=== PATIENT | female | born 1970 | race Caucasian/White ===

== ENCOUNTER 2024-10-24 11:32 | Day surgery (SDC) | payer BC ==
[~2024-10-24] VITALS: Ht 157.5 cm; Wt 66.5 kg
[~2024-10-24 11:32] MED LIST: AMPH1CAP5 PO; BUSP5TA PO; LEVO25TA5 PO; LEXA1TAB PO
[2024-10-24] MEDS ORDERED: LIDOCAINE 2% INJ 100 MG/5 ML SYRINGE As Ordered ONE (13:13)
[2024-10-24] MEDS ORDERED: propofoL 200 MG/20 ML VIAL As Ordered ONE (13:13)
[2024-10-24 13:42] VITALS: TEMP 98.4
[2024-10-24 13:52] VITALS: BP 108/71; O2SAT 99
== END 2024-10-24 14:10 | disposition home or self-care (01) ==
LOC: M OPP 11:32
PROVIDERS: ATTEND Internal Medicine Gastroenterology
DX: Z12.11 Encounter for screening for malignant neoplasm of colon (principal); Z12.12 Encounter for screening for malignant neoplasm of rectum; K64.0 First degree hemorrhoids; E03.9 Hypothyroidism, unspecified; Z79.890 Hormone replacement therapy; Z79.899 Other long term (current) drug therapy; F32.A Depression, unspecified; F41.9 Anxiety disorder, unspecified; Z90.49 Acquired absence of other specified parts of digestive tract